=== PATIENT | male | born 2000 | race Caucasian/White ===

== ENCOUNTER 2020-11-04 16:29 | Emergency (ER) | payer OTHER, BC ==
--- NOTE | 2020-11-04 16:56 | ER Document Report ---
ED Wound - General Chief Complaint: Laceration Stated Complaint: LACERATION/LIP Time Seen by Provider: 11/04/20 16:48 - HPI Notes: [id number]-male presents to ED for evaluation of upper right-sided lip laceration sustained earlier today. Patient reports he was caught in the side of the face with a crowbar. Reports that he did not lose consciousness. He denies any loose dentition. Reports pain to the area. Reports that the laceration does cross through the upper lip. He denies any dizziness or lightheadedness. Reports he is up-to-date on his tetanus vaccine. Denies paresthesias. Endorses no other complaints. - Related Data Allergies/Adverse Reactions: epinephrine Allergy (Verified 11/04/20 16:44) Past Medical History - Social History Smoking Status: Never Smoker Family History: None - Medical History Medical History: Negative Review of Systems - Review of Systems Notes: Constitutional: Negative for fever. HENT: Negative for sore throat. Eyes: Negative for visual changes. Cardiovascular: Negative for chest pain. Respiratory: Negative for shortness of breath. Gastrointestinal: Negative for abdominal pain, vomiting or diarrhea. Genitourinary: Negative for dysuria. Musculoskeletal: Negative for back pain. Skin: Negative for rash. Neurological: Negative for headaches, weakness or numbness. 10 point ROS negative except as marked above and in HPI. Physical Exam - Vital signs Vitals: Temp Pulse Resp BP Pulse Ox 98.1 F 63 16 130/70 H 99 11/04/20 16:45 11/04/20 16:45 11/04/20 16:45 11/04/20 16:45 11/04/20 16:45 General: No acute distress. Alert and oriented x3. Sitting comfortably in a stretcher. Skin: No jaundice, pallor, or erythema. Warm and dry. 0.25 cm laceration to right upper lip vertically through wayne border. HEENT: No evidence of contusion or smiley signs. No evidence of racoon eyes. Pupils are equal round reactive to light and accommodation. Extraocular movements are intact. TMs without erythema or bulging. No hemotympanum bilaterally. Canals are clear. Nares patent without any discharge. Teeth in good condition. Pharynx without erythema, edema, or exudates. No tonsillar enlargement. Uvula is midline. Airway is patent. Neck: Supple and nontender, with no lymphadenopathy. No cervical spinal tenderness. Full range of motion. Heart: Regular rate and rhythm. S1,S2. No murmurs, rubs, or gallops. Lungs: Clear to ausculation bilaterally. No wheezes, rhonchi, rales. Equal chest expansion. No retractions. Abdomen: Soft, nontender to palpation, nondistended. Positive bowel sounds in all 4 quadrants. No masses. No CVA tenderness bilaterally. Back: No midline spinal TTP. Full range of motion. Neuro: Cranial nerves II-XII are intact. GCS 15. Moving all extremities without discomfort. Strength 5+ in all extremities. Sensation intact x4. No pronator drift. Coordination intact x4. Gait steady. Deep tendon reflexes 2+ upper and lower extremities bilaterally. Radial and pedal pulses 2+ bilaterally. Psych: Mood and affect appropriate. Course - Re-evaluation Re-evalutation: 11/04/20 17:47 20-year-old male presents to ED for evaluation of right-sided facial injury sustained during iard today. Patient was struck in the right side of the lip. Small laceration is present. Patient was found to have no loose dentition. Patient does not have signs or symptoms concerning for concussion at this time. Imaging is deferred. I discussed patient that he may have symptoms of mild head injury. He is advised about concerning signs and symptoms as well as provided indications to return. Patient did undergo laceration repair by myself. Patient had full strength, sensation, and range of motion. The patient did not appear to have any tendon laceration. Laceration was repaired with sutures. Patient was advised to have stitches out in 5-7 days, keep wound clean and dry and cover with antibiotic ointment. Apply sunscreen to wound when healed. Patient was advised to look for signs of infection, redness, swelling, drainage, fevers or chills, and return if these symptoms occur. Advised to eat dental soft foods and started on a course of amoxicillin to prevent infection. Patient was advised to follow up with the primary physician and return if any worsening of symptoms. - Vital Signs Vital signs: Temp Pulse Resp BP Pulse Ox 98.1 F 63 16 130/70 H 99 11/04/20 16:46 11/04/20 16:45 11/04/20 16:45 11/04/20 16:45 11/04/20 16:45 - Laboratory Results Critical Laboratory Results Reviewed: No Critical Results - Radiology Results Critical Radiology Results Reviewed: No Critical Results Procedures - Laceration/Wound Repair Right Upper Face Time completed: 17:45 Wound length (cm): 0.3 Wound's Depth, Shape: Superficial Laceration pre-procedure: Sterile PPE donned, Sterile drapes applied, Shur-Clens applied Anesthetic type: Other - LET solution Wound explored: Clean Irrigated w/ Saline (mLs): 5 Wound Debrided: Minimal Wound Repaired With: Sutures Suture Size/Type: 5:0, Prolene Number of Sutures: 3 Layer Closure?: No Discharge - Discharge Clinical Impression: Laceration of lip Qualifiers: Encounter type: initial encounter Qualified Code(s): S01.511A - Laceration without foreign body of lip, initial encounter Facial contusion Qualifiers: Encounter type: initial encounter Qualified Code(s): S00.83XA - Contusion of other part of head, initial encounter Condition: Stable Disposition: HOME, SELF-CARE Instructions: Laceration Care ([facility]), Soap Cleansing ([facility]) Additional Instructions: sutures to come out in 5-7 days. Prescriptions: Amoxicillin 1 tab PO TID #30 tab Forms: Return to Work
[2020-11-04] MEDS ORDERED: LIDOCAINE 1% INJ-PF (10 MG/ML) 30 ML SDV INJ ONE (16:58)
[2020-11-04 17:04] VITALS: BP 130/70
[2020-11-04] MEDS ORDERED: LIDOCAINE 4%/TETRACAINE 0.5%/EPI 0.18% 5 ML TOPICAL SOLN TOP ONE (17:08)
== END 2020-11-04 17:50 | disposition home or self-care (01) ==
LOC: ER 16:29
DX: S01.511A Laceration without foreign body of lip, initial encounter (principal); W22.8XXA Striking against or struck by other objects, initial encounter; Z88.8 Allergy status to other drugs, medicaments and biological substances
CPT/HCPCS: 99283; 12011; J3490 ×2